=== PATIENT | female | born 1950 | race African-American/Black ===

== ENCOUNTER 2022-05-08 17:04 | Emergency (ER) | payer MEDICARE ==
[~2022-05-08] VITALS: Ht 162.6 cm; Wt 57.0 kg
[2022-05-08 17:27] VITALS: BP 123/82
[2022-05-09] MEDS ORDERED: ACETAMINOPHEN 325MG TABLET PO ONE (00:15)
== END 2022-05-09 | disposition home or self-care (01) ==
LOC: ER 17:04
DX: S02.2XXA Fracture of nasal bones, initial encounter for closed fracture (principal); W01.10XA Fall on same level from slipping, tripping and stumbling with subsequent striking against unspecified object, initial encounter; I10 Essential (primary) hypertension; E78.5 Hyperlipidemia, unspecified; Y93.89 Activity, other specified; Y92.89 Other specified places as the place of occurrence of the external cause
CPT/HCPCS: 70486; 73030; 99284